=== PATIENT | female | born 1985 ===

== ENCOUNTER 2018-09-06 14:26 | Emergency (ER) | payer SELFPAY ==
[2018-09-06] MEDS ORDERED: Ketorolac Tromethamine 30 MG/ML VIAL ONE (15:08)
[2018-09-06] MEDS ORDERED: Diazepam 5 MG TAB ONE (15:10)
[2018-09-06 15:40] LABS: Bilirubin Negative (Negative); Blood, Urine Small (Negative); Clarity CLEAR (Clear); Glucose, Urine (Dipstick) Negative (Negative); Leukocyte Negative (Negative); Nitrite Negative (Negative); Pregnancy Test - Urine (BHCG) Negative (Negative); Pregu Control Background? CLEAR/WHITE (CLR/WHITE); Pregu Control Bar Appear? YES (CONTROL BAR); Protein, Urine (Dipstick) Negative (Neg-Trace); Specific Gravity 1.028 (1.002-1.036); Specific Gravity, Urine 1.028 (1.002-1.036)
[2018-09-06 15:44] LABS: Bacteria/HPF None Seen HPF (None Seen); Hyaline Casts/LPF 0-3 HYALINE CAST LPF (0-3 Hyaline); Squamous Epithelial 0-3 HPF (0-3); WBC/HPF 0-3 HPF (0-3)
--- NOTE | 2018-09-06 15:52 | RAD ---
LUMBAR SPINE THREE VIEWS: 09/06/18 HISTORY: Low back pain. FINDINGS/IMPRESSION: Minimal anterolisthesis of L4 over L5 vertebral bodies. No compression fracture or bony destruction s een. POS: [facility]
== END 2018-09-06 16:20 | disposition home or self-care (01) ==
LOC: ERS 14:26
DX: M54.5 Low back pain (principal)
CPT/HCPCS: 72100; 81003; 81015; 81025; 96372; J1885